=== PATIENT | male | born 1970 | race Caucasian/White ===

== ENCOUNTER → 2017-01-14 | Emergency (ER) | payer BC ==
[~2017-01-14] VITALS: Ht 177.8 cm; Wt 95.2 kg
[~2017-01-14] MED LIST: CYCLOBENZAPRINE10 MG PO; FAMOTIDINE40 MG PO; NORCO 5-325 TA1 EACH PO; PAROXETINE HCL10 MG PO
== END ==
LOC: ED 12:20
DX: S22.42XA Multiple fractures of ribs, left side, initial encounter for closed fracture (principal); Z79.899 Other long term (current) drug therapy; W01.198A Fall on same level from slipping, tripping and stumbling with subsequent striking against other object, initial encounter
CPT/HCPCS: 71020; 99283

== ENCOUNTER 2021-01-17 16:17 | Emergency (ER) | payer OTHER, BC ==
[~2021-01-17] VITALS: Ht 177.8 cm; Wt 95.2 kg
[2021-01-17] MEDS ORDERED: HYDROCHLOROTH12.5 MG PO (17:45)
[2021-01-17] MEDS ORDERED: FLUTICASONE PRO16 GM NAS (17:45)
[2021-01-17] MEDS ORDERED: OMEPRAZOLE20 MG PO (17:45)
[2021-01-17] MEDS ORDERED: POTASSIUM CHLOR8 ME1 PO (17:45)
[2021-01-17] MEDS ORDERED: LIDODERM1 EACH TOP (19:32)
[2021-01-17] MEDS ORDERED: VALIUM5 MG PO (19:32)
== END 2021-01-17 20:07 | disposition home or self-care (01) ==
LOC: ED 16:17
DX: M54.50 Low back pain, unspecified (principal); Z79.899 Other long term (current) drug therapy; X50.1XXA Overexertion from prolonged static or awkward postures, initial encounter
CPT/HCPCS: 99283; A9270